=== PATIENT | female | born 1990 ===

== ENCOUNTER 2018-08-22 00:54 | Emergency (ER) | payer SELFPAY ==
[2018-08-22 01:03] VITALS: BP 125/76
[2018-08-22] MEDS ORDERED: TETRACAINE HCL 0.5% OPH SOLN 4 ML OU ONE (01:45)
[2018-08-22] MEDS ORDERED: TETRACAINE HCL 0.5% OPH SOLN 4 ML ONE (01:45)
[2018-08-22] MEDS ORDERED: OXYCODONE-ACETAMINOPHEN 5-325 MG TABLET PO ONE (02:04)
[2018-08-22] MEDS ORDERED: CIPROFLOXACIN HCL 0.3% OPH SOLN 2.5 ML OS ONE (02:04)
--- NOTE | 2018-08-22 02:08 | ER Document Report ---
ED General - General Chief Complaint: Redness of Eye Stated Complaint: EYE PAIN Time Seen by Provider: 08/22/18 01:42 Notes: Patient is a 28-year-old female that presents to the emergency department for chief complaint of left eye pain. Patient states that she took her contacts out this evening, and then went to sleep, and she was woken up around 1030 or 11 :00 at night with severe left eye pain and blurred vision in the left eye so she decided to come to the emergency department. She states she has new contacts, and usually she will lubricate her eyes before removing them, but she did not do this this evening, and pulled out the contact out of her left eye. She states she noticed redness and tearing, and pain that she currently rates as a 9 out of 10 as a constant and sharp sensation to the left eye. Past Medical History: Denies chronic medical conditions Past Surgical History: Denies surgical history Social History: Denies tobacco, alcohol or drug use. Family History: Reviewed and noncontributory for presenting illness Allergies: Reviewed, see documented allergy list. REVIEW OF SYSTEMS: Unless otherwise stated in this report the patient's positive and negative responses for review of systems for constitutional, eyes, ENT, cardiovascular, respiratory, gastrointestinal, neurological, genitourinary, musculoskeletal, and integumentary systems and related systems to the presenting problem are either as stated in the HPI or were not pertinent or were negative for the symptoms and/or complaints related to the presenting medical problem. PHYSICAL EXAMINATION: Vital signs reviewed, nursing noted reviewed. GENERAL: Well-appearing, well-nourished and in no acute distress. HEAD: Atraumatic, normocephalic. EYES: Left conjunctival injection, under fluorescein dye exam with Medina lamp, patient noted to have a circular corneal abrasion, over the center of the cornea , extraocular movements intact, sclera anicteric, conjunctiva are normal. No pain with extraocular eye movement, no periorbital edema. The right eye is unremarkable. PERRLA. ENT: nares patent, oropharynx clear without exudates. Moist mucous membranes. NECK: Normal range of motion, supple without lymphadenopathy LUNGS: Breath sounds clear to auscultation bilaterally and equal. No wheezes rales or rhonchi. HEART: Regular rate and rhythm without murmurs ABDOMEN: Soft, nontender, normoactive bowel sounds. No rebound, guarding, or rigidity. No masses appreciated. EXTREMITIES: Nontender, good range of motion, no pitting or edema. NEUROLOGICAL: No focal neurological deficits. Moves all extremities spontaneously Motor and sensory grossly intact on exam. PSYCH: Normal mood, normal affect. SKIN: Warm, Dry, normal turgor, no rashes or lesions noted on exposed skin TRAVEL OUTSIDE OF THE [place] IN LAST 30 DAYS: No Past Medical History - Social History Smoking Status: Never Smoker Chew tobacco use (# tins/day): No Frequency of alcohol use: Occasional Drug Abuse: None Family History: Reviewed & Not Pertinent Patient has suicidal ideation: No Patient has homicidal ideation: No Renal/ Medical History: Denies: Hx Peritoneal Dialysis Physical Exam - Vital signs Vitals: Temp Pulse BP Pulse Ox 98.0 F 72 125/76 100 08/22/18 01:00 08/22/18 01:00 08/22/18 01:00 08/22/18 01:00 - HEENT Visual acuity- Right eye: 20/40 Visual acuity- Left eye: 20/100 Visual acuity- Both eyes: 20/100 Corrective lenses worn: Yes Course - Re-evaluation Re-evalutation: Patient seen and examined, vital signs reviewed, on the exam the patient had a large corneal abrasion, in this case most likely secondary to removal of her contact this evening, patient was given tetracaine drop which improved her pain , and given Percocet 10 mg in the emergency department, and given a ciprofloxacin eyedrop. Patient will be discharged home with ciprofloxacin eyedrops 1 drop every 4 hours, given referral to ophthalmology for today, and given a prescription for Percocet if she had worsening pain at home as well. Patient was advised not to place her contacts in until further advised by ophthalmology she agreed to this. Patient did note that she stated that she is not . Patient agreeable to plan of care and was discharged home. - Vital Signs Vital signs: Temp Pulse Resp BP Pulse Ox 98.0 F 72 125/76 100 08/22/18 01:00 08/22/18 01:00 08/22/18 01:00 08/22/18 01:00 Discharge - Discharge Clinical Impression: Left corneal abrasion Qualifiers: Encounter type: initial encounter Qualified Code(s): S05.02XA - Injury of conjunctiva and corneal abrasion without foreign body, left eye, initial encounter Condition: Stable Disposition: HOME, SELF-CARE Instructions: Corneal Abrasion ([facility]) Additional Instructions: Use the Cipro eye drops 1 drop in the left eye every fours hours for the next 5 days. Please follow-up with ophthalmology, call for appointment today. Prescriptions: Oxycodone HCl/Acetaminophen [Percocet 5-325 mg Tablet] 1 tab PO Q8H PRN #5 tab PRN Reason: eye pain Forms: Return to Work Referrals: SHRUTHI SALGADO MD [ACTIVE STAFF] - 08/22/18
== END 2018-08-22 02:20 | disposition home or self-care (01) ==
LOC: ER 00:54
DX: H18.822 Corneal disorder due to contact lens, left eye (principal)
CPT/HCPCS: 99283; J3490 ×2

== ENCOUNTER 2018-09-09 10:25 | Emergency (ER) | payer SELFPAY ==
[2018-09-09 10:32] VITALS: BP 124/85
[2018-09-09] MEDS ORDERED: PROCHLORPERAZINE EDISYLATE INJ 10 MG/2 ML VIAL IV ONE (10:57)
[2018-09-09] MEDS ORDERED: ONDANSETRON HCL INJ/PF 4 MG/2 ML SDV IV ONE (10:57)
[2018-09-09] MEDS ORDERED: NORMAL SALINE 1000 ML 1,000 ML IV ONE (10:58)
[2018-09-09 11:34] LABS: ABSOLUTE BASOPHILS # (AUTO) 0.1 10^3/uL (0.0-0.2); ABSOLUTE EOSINOPHILS # (AUTO) 0.2 10^3/uL (0.0-0.6); ABSOLUTE LYMPHOCYTES (AUTO) 2.3 10^3/uL (0.5-4.7); ABSOLUTE MONOCYTES (AUTO) 0.7 10^3/uL (0.1-1.4); ABSOLUTE NEUT (AUTO) 5.8 10^3/uL (1.7-8.2); BASOPHILS % (AUTO) 0.6 % (0-2); EOSINOPHILS % (AUTO) 1.7 % (0-6); HEMATOCRIT 37.9 % (36.0-47.0); HEMOGLOBIN 12.7 g/dL (12.0-15.5); LYMPHOCYTES % (AUTO) 25.5 % (13-45); MEAN CORPUSCULAR HEMOGLOBIN 29.2 pg (27.0-33.4); MEAN CORPUSCULAR HGB CONC 33.4 g/dL (32.0-36.0); MEAN CORPUSCULAR VOLUME 88 fl (80-97); PLATELET COUNT 387 10^3/uL (150-450); RED BLOOD COUNT 4.33 10^6/uL (3.72-5.28); RED CELL DISTRIBUTION WIDTH 13.5 % (11.5-14.0); SEGMENTED NEUTROPHILS % (AUTO) 64.2 % (42-78); TOTAL CELLS COUNTED % (AUTO) 100 %; WHITE BLOOD COUNT 9.1 10^3/uL (4.0-10.5)
[2018-09-09 11:38] LABS: ALANINE AMINOTRANSFERASE 11 U/L (9-52); ALBUMIN 4.3 g/dL (3.5-5.0); ALKALINE PHOSPHATASE 63 U/L (38-126); ANION GAP 9 (5-19); ASPARTATE AMINO TRANSFERASE 27 U/L (14-36); BILIRUBIN,DIRECT 0.1 mg/dL (0.0-0.4); BILIRUBIN,TOTAL 0.4 mg/dL (0.2-1.3); BLOOD UREA NITROGEN 13 mg/dL (7-20); CALCIUM 9.4 mg/dL (8.4-10.2); CARBON DIOXIDE 26 mmol/L (22-30); CHLORIDE 108 mmol/L (98-107); GLUCOSE 103 mg/dL (75-110); LIPASE 119.9 U/L (23-300); POTASSIUM 4.1 mmol/L (3.6-5.0); SODIUM 142.9 mmol/L (137-145); TOTAL PROTEIN 7.8 g/dL (6.3-8.2)
[2018-09-09 12:14] LABS: APPEARANCE,URINE SLIGHTLY-CLOUDY; BILIRUBIN,URINE NEGATIVE (NEGATIVE); COLOR,URINE YELLOW; GLUCOSE, URINE NEGATIVE (NEGATIVE); KETONES,URINE NEGATIVE (NEGATIVE); LEUKOCYTE ESTERASE,URINE NEGATIVE (NEGATIVE); NITRITE,URINE NEGATIVE (NEGATIVE); PROTEIN,URINE NEGATIVE (NEGATIVE); URINE SPECIFIC GRAVITY 1.025
--- NOTE | 2018-09-09 12:28 | ER Document Report ---
ED General - General Chief Complaint: Chest Pain Stated Complaint: CHEST PAIN, BLURRED VISION, HEADACHE Time Seen by Provider: 09/09/18 10:51 TRAVEL OUTSIDE OF THE [place] IN LAST 30 DAYS: No - HPI Patient complains to provider of: Multiple symptoms Notes: Patient coming in today after having multiple symptoms that are replaced. Patient states while she was working she started having some vomiting after the vomiting dizziness headache and chest pain. Patient upon my evaluation is resting comfortably no signs of any obvious distress. Patient states feels nauseous with a headache however no chest pain no dizziness patient denies any fever chills diarrhea denies any recent antibiotics. Patient states well- hydrated. Denies any recent travel states that multiple coworkers are sick with similar symptoms. - Related Data Allergies/Adverse Reactions: No Known Allergies Allergy (Verified 09/09/18 10:57) Past Medical History - Social History Smoking Status: Never Smoker Chew tobacco use (# tins/day): No Frequency of alcohol use: None Drug Abuse: None Family History: Reviewed & Not Pertinent Patient has suicidal ideation: No Patient has homicidal ideation: No Renal/ Medical History: Denies: Hx Peritoneal Dialysis Review of Systems - Review of Systems Constitutional: No symptoms reported EENT: No symptoms reported Cardiovascular: No symptoms reported, Chest pain Respiratory: No symptoms reported Gastrointestinal: Nausea, Vomiting Genitourinary: No symptoms reported Female Genitourinary: No symptoms reported Musculoskeletal: No symptoms reported Skin: No symptoms reported Hematologic/Lymphatic: No symptoms reported Neurological/Psychological: Headaches Physical Exam - Vital signs Vitals: Temp Pulse Resp BP Pulse Ox 98.6 F 79 18 124/85 99 09/09/18 10:30 09/09/18 10:30 09/09/18 10:30 09/09/18 10:30 09/09/18 10:30 Interpretation: Normal - General General appearance: Appears well, Alert - HEENT Head: Normocephalic, Atraumatic Eyes: Normal Pupils: PERRL - Respiratory Respiratory status: No respiratory distress Chest status: Nontender Breath sounds: Normal Chest palpation: Normal - Cardiovascular Rhythm: Regular Heart sounds: Normal auscultation Murmur: No - Abdominal Inspection: Normal Distension: No distension Bowel sounds: Normal Tenderness: Nontender Organomegaly: No organomegaly - Back Back: Normal, Nontender - Extremities General upper extremity: Normal inspection, Nontender, Normal color, Normal ROM , Normal temperature General lower extremity: Normal inspection, Nontender, Normal color, Normal ROM , Normal temperature, Normal weight bearing. No: Toby's sign - Neurological Neuro grossly intact: Yes Cognition: Normal Orientation: AAOx4 Risa Coma Scale Eye Opening: Spontaneous Frederick Coma Scale Verbal: Oriented Frederick Coma Scale Motor: Obeys Commands Frederick Coma Scale Total: 15 Speech: Normal Motor strength normal: LUE, RUE, LLE, RLE Sensory: Normal - Psychological Associated symptoms: Normal affect, Normal mood - Skin Skin Temperature: Warm Skin Moisture: Dry Skin Color: Normal Course - Re-evaluation Re-evalutation: 09/09/18 19:55 Patient's physical examination not reveal any critical pathology. Laboratory studies were ordered along with IV fluids and medications for the patient's headache. EKG did not show any acute pathology as well. I was informed by the nursing staff that patient eloped prior to receiving her discharge papers. No critical pathology seen on laboratory studies as well. - Vital Signs Vital signs: Temp Pulse Resp BP Pulse Ox 98.6 F 79 18 124/85 99 09/09/18 10:30 09/09/18 10:30 09/09/18 10:30 09/09/18 10:30 09/09/18 10:30 - Laboratory Result Diagrams: 09/09/18 11:12 09/09/18 11:12 Laboratory results interpreted by me: 09/09/18 09/09/18 11:12 11:12 Chloride 108 H Urine Urobilinogen 4.0 H Discharge - Discharge Clinical Impression: Headache Qualifiers: Headache type: unspecified Headache chronicity pattern: unspecified pattern Intractability: not intractable Qualified Code(s): R51 - Headache Nausea & vomiting Qualifiers: Vomiting type: unspecified Vomiting Intractability: non-intractable Qualified Code(s): R11.2 - Nausea with vomiting, unspecified Condition: Good Disposition: ELOPED Instructions: Headache ([facility]), Vomiting ([facility]) Additional Instructions: Laboratory studies not reveal any significant pathology today. More likely her symptoms may be due to underlying virus. We will treat her symptoms nausea vomiting with either Zofran or Compazine. If you continue to have headaches we recommend Tylenol or Motrin also he can take the Compazine and Zofran together for your headaches. Return to ER for worsening of symptoms Prescriptions: Ibuprofen [Motrin 600 mg Tablet] 600 mg PO Q8HP PRN #21 tablet PRN Reason: Ondansetron HCl [Zofran 4 mg Tablet] 1 - 2 tab PO Q6 #30 tablet Prochlorperazine Maleate [Compazine] 5 mg PO Q6 #30 tablet Forms: Return to Work
--- NOTE | 2018-09-09 13:03 | EKG REPORT ---
SEVERITY:- BORDERLINE ECG - SINUS RHYTHM INFERIOR Q WAVES, PROBABLY NORMAL VARIATION : Confirmed by: Elroy Sky MD 09-Sep-2018 13:02:45
== END 2018-09-09 12:31 | disposition left against medical advice (07) ==
LOC: ER 10:25
DX: R07.9 Chest pain, unspecified (principal); R51 Headache; H53.8 Other visual disturbances
CPT/HCPCS: 93005; 99285; 96361; 96374; 96375; 36415; 83690; 85025; 81025; 80053; 81001; 93010; J0780; J2405; J7030